=== PATIENT | female | born 1965 | race Caucasian/White ===

== ENCOUNTER 2017-11-03 10:40 | Emergency (ER) | payer OTHER ==
[2017-11-03] MEDS ORDERED: DEXTROSE 50%-WATER 50 ML SYRINGE IVP ONE (10:43)
[2017-11-03] MEDS ORDERED: MAGNESIUM SULFATE SYG 4.06 MEQ/ML SYRINGE ONE (10:43)
[2017-11-03] MEDS ORDERED: EPINEPHrine 10 ML SYRINGE (0.1 MG/ML) ONE (10:43)
[2017-11-03] MEDS ORDERED: SODIUM BICARB 8.4% 50 ML SYR (1 MEQ/ML) ONE (10:43)
[2017-11-03] MEDS ORDERED: SODIUM CHLORIDE 0.9% 1,000 ML IV STA (11:03)
[2017-11-03 11:04] LABS: Glucose,Whole Blood <20 mg/dL (75-99)
[2017-11-03 11:04] LABS: Glucose,Whole Blood <20 mg/dL (75-99)
--- NOTE | 2017-11-03 11:14 | ED ---
CPR HPI - General Stated Complaint: unresponsive Time Seen by Provider: 11/03/17 10:40 Source: EMS, RN notes reviewed Mode of arrival: EMS - History of Present Illness Initial Comments: This is a 51-year-old female laying history of alcoholism but unknown other history at this time. Apparently has not been drinking alcohol for about 5 days and started going through withdrawal symptoms. Apparently EMS was called twice is here yesterday but she refused transport. Today she was feeling bad and the family did bring into the hospital but she collapsed suddenly when the nurses here to the car. Fire rescue arrived at 9:42 AM and EMS read it 9:45 AM. ACLS protocol and evaluation was per formed. Patient had gone into what appear to be cardiac arrest and interosseous IV was started and the left lower extremity her glucose is 55 chest compressions were started epinephrine was given. Patient was intubated with a 7.0 ET tube. Patient did go through various rhythms including PEA upon arrival CPR was in progress patient did have episodes of PEA with long Pauses. After persistent CPR and ACLS protocol the patient did have spontaneous circulation is evident by peripheral pulses blood pressure and cardiac activity on a monitor. MD Complaint: collapsed during activity - Related Data Home Medications Medication Instructions Recorded Confirmed No Known Home Medications [No 11/03/17 11/03/17 Known Home Medications] Allergies Allergy/AdvReac Type Severity Reaction Status Date / Time No Known Allergies Allergy Verified 11/03/17 11:54 Review of Systems ROS Statement: Those systems with pertinent positive or pertinent negative responses have been documented in the HPI. ROS Other: All systems not noted in ROS Statement are negative. Limitations: ROS unobtainable due to patients medical condition General Exam - General Exam Comments Initial Comments: This is a well-developed asthenic appearing female who is unresponsive. Limitations: altered mental status, physical limitation General appearance: other (Unresponsive) Head exam: Present: atraumatic, normocephalic, normal inspection Eye exam: Present: other (Pupils fixed and midpoint) ENT exam: Present: other (Oral tracheal tube in place) Neck exam: Present: normal inspection Respiratory exam: Present: decreased breath sounds (Equal but diminished breath sounds bilaterally) Cardiovascular Exam: Present: other (Initially pulseless) GI/Abdominal exam: Present: distended, other (Evidence of hepatomegaly and distended abdominal veins) Rectal exam: Present: deferred External exam: Present: normal external exam Extremities exam: Present: other (Cool to touch with vasoconstriction). Absent : full ROM Back exam: Present: normal inspection Neurological exam: Present: other (Unresponsive) Psychiatric exam: Present: other (Unresponsive) Skin exam: Present: pallor, mottled Course Vital Signs 11/03/17 12:02 Pulse Rate 36 L Respiratory 20 Rate O2 Sat by Pulse 100 Oximetry - Reevaluation(s) Reevaluation #1: 11/03/17 14:04 Patient did require extensive CPR and did have return of spontaneous circulation but no evidence of neurological function pupils remained fixed and midpoint no response to stimulus. Reevaluation #2: 11/03/17 14:04 I did discuss the events with the patient's . He states she's not been feeling well for 6-7 days since she quit drinking alcohol he's been in bed the last 2 days he has been eating or drinking. He tried to bring her to the hospital today after she had refused last several days she last became unresponsive. He stated there is perhaps 5-6 minute leg time before the fire Department was able to respond to the house. He has stated that she previously is slid out of bed and about 4:30 this morning complaining of being cold. She has been naked where she normally was always cold wearing closed. When EMS responded and she was at neck and in apparent PEA arrest ACLS protocol was begun. Reevaluation #3: 11/03/17 14:08 I did review the lab work that was available this is all post resuscitation and the results to likely reflect this. Medical Decision Making - Medical Decision Making I did have an extensively long discussion with the patient's regarding the events. Patient has been showing runs of asystole. Becoming more frequent patient prognosis is very poor after discussion the patient was made a supportive care only. Unlikely chance of recovery due to the extensive down time and CPR time. Patient was placed on a T piece and shortly thereafter did 12:52 pm time of . I did also discuss case the medical certification specialist's office at 1300 p.m. patient will be placed in the morgue at this time - Lab Data Result diagrams: 11/03/17 11:15 11/03/17 11:15 Lab Results 11/03/17 11/03/17 11/03/17 Range/Units 10:55 11:02 11:15 WBC (3.8-10.6) k/uL RBC (3.80-5.40) m/uL Hgb (11.4-16.0) gm/dL Hct (34.0-46.0) % MCV (80.0-100.0) fL MCH (25.0-35.0) pg MCHC (31.0-37.0) g/dL RDW (11.5-15.5) % Plt Count (150-450) k/uL Neutrophils % (Manual) % Band Neutrophils % % Lymphocytes % (Manual) % Monocytes % (Manual) % Eosinophils % (Manual) % Metamyelocytes % % Myelocytes % % Promyelocytes % % Neutrophils # (Manual) (1.3-7.7) k/uL Lymphocytes # (Manual) (1.0-4.8) k/uL Monocytes # (Manual) (0-1.0) k/uL Eosinophils # (Manual) (0-0.7) k/uL Metamyelocytes # (Man) (0) k/uL Myelocytes # (Manual) (0) k/uL Promyelocytes # (Man) (0) k/uL Nucleated RBCs (0-0) /100 WBC Toxic Granulation Toxic Vacuolation Hypochromasia Poikilocytosis (manual Anisocytosis (manual) Macrocytosis Fragmented RBCs PT (9.0-12.0) sec INR (<1.2) APTT (22.0-30.0) sec D-Dimer (<0.60) mg/L FEU Sodium (137-145) mmol/L Potassium (3.5-5.1) mmol/L Chloride (98-107) mmol/L Carbon Dioxide (22-30) mmol/L Anion Gap mmol/L BUN (7-17) mg/dL Creatinine (0.52-1.04) mg/dL Est GFR (CKD-EPI)AfAm (>60 ml/min/1.73 sqM) Est GFR (CKD-EPI)NonAf (>60 ml/min/1.73 sqM) Glucose (74-99) mg/dL POC Glucose (mg/dL) <20 L <20 L (75-99) mg/dL POC Glu Assistant Banquet Manager ID Rona Patrick Brittnie Calcium (8.4-10.2) mg/dL Magnesium (1.6-2.3) mg/dL Total Bilirubin (0.2-1.3) mg/dL AST (14-36) U/L ALT (9-52) U/L Alkaline Phosphatase (38-126) U/L Ammonia 735 H (<30) umol/L Total Creatine Kinase (30-135) U/L CK-MB (CK-2) (0.0-2.4) ng/mL CK-MB (CK-2) Rel Index Troponin I (0.000-0.034) ng/mL NT-Pro-B Natriuret Pep pg/mL Total Protein (6.3-8.2) g/dL Albumin (3.5-5.0) g/dL Amylase (30-110) U/L Lipase (23-300) U/L Serum Alcohol mg/dL 11/03/17 11/03/17 11/03/17 Range/Units 11:15 11:15 11:15 WBC 18.3 H (3.8-10.6) k/uL RBC 1.80 L (3.80-5.40) m/uL Hgb 5.9 L* (11.4-16.0) gm/dL Hct 21.0 L (34.0-46.0) % MCV 116.9 H (80.0-100.0) fL MCH 32.6 (25.0-35.0) pg MCHC 27.9 L (31.0-37.0) g/dL RDW 13.2 (11.5-15.5) % Plt Count 53 L (150-450) k/uL Neutrophils % (Manual) 45 % Band Neutrophils % 26 % Lymphocytes % (Manual) 10 % Monocytes % (Manual) 6 % Eosinophils % (Manual) 1 % Metamyelocytes % 5 % Myelocytes % 9 % Promyelocytes % 1 % Neutrophils # (Manual) 12.90 H (1.3-7.7) k/uL Lymphocytes # (Manual) 1.83 (1.0-4.8) k/uL Monocytes # (Manual) 1.10 H (0-1.0) k/uL Eosinophils # (Manual) 0.18 (0-0.7) k/uL Metamyelocytes # (Man) 0.92 H (0) k/uL Myelocytes # (Manual) 1.65 H (0) k/uL Promyelocytes # (Man) 0.18 H (0) k/uL Nucleated RBCs 0 (0-0) /100 WBC Toxic Granulation Present Toxic Vacuolation Present Hypochromasia Marked Poikilocytosis (manual Present Anisocytosis (manual) Present Macrocytosis Marked Fragmented RBCs Present PT (9.0-12.0) sec INR (<1.2) APTT (22.0-30.0) sec D-Dimer (<0.60) mg/L FEU Sodium 122 L (137-145) mmol/L Potassium 8.7 H* (3.5-5.1) mmol/L Chloride 80 L* (98-107) mmol/L Carbon Dioxide 6 L* (22-30) mmol/L Anion Gap 36 mmol/L BUN 113 H* (7-17) mg/dL Creatinine 3.60 H (0.52-1.04) mg/dL Est GFR (CKD-EPI)AfAm 16 (>60 ml/min/1.73 sqM) Est GFR (CKD-EPI)NonAf 14 (>60 ml/min/1.73 sqM) Glucose 850 H* (74-99) mg/dL POC Glucose (mg/dL) (75-99) mg/dL POC Glu Assistant Banquet Manager ID Calcium 7.3 L (8.4-10.2) mg/dL Magnesium 4.9 H* (1.6-2.3) mg/dL Total Bilirubin 1.5 H (0.2-1.3) mg/dL AST 284 H (14-36) U/L ALT 81 H (9-52) U/L Alkaline Phosphatase 194 H (38-126) U/L Ammonia (<30) umol/L Total Creatine Kinase 217 H (30-135) U/L CK-MB (CK-2) 6.2 H* (0.0-2.4) ng/mL CK-MB (CK-2) Rel Index 2.9 Troponin I 0.027 (0.000-0.034) ng/mL NT-Pro-B Natriuret Pep pg/mL Total Protein 3.5 L (6.3-8.2) g/dL Albumin 1.3 L (3.5-5.0) g/dL Amylase 72 (30-110) U/L Lipase 187 (23-300) U/L Serum Alcohol <10 mg/dL 11/03/17 11/03/17 11/03/17 Range/Units 11:15 11:15 11:16 WBC (3.8-10.6) k/uL RBC (3.80-5.40) m/uL Hgb (11.4-16.0) gm/dL Hct (34.0-46.0) % MCV (80.0-100.0) fL MCH (25.0-35.0) pg MCHC (31.0-37.0) g/dL RDW (11.5-15.5) % Plt Count (150-450) k/uL Neutrophils % (Manual) % Band Neutrophils % % Lymphocytes % (Manual) % Monocytes % (Manual) % Eosinophils % (Manual) % Metamyelocytes % % Myelocytes % % Promyelocytes % % Neutrophils # (Manual) (1.3-7.7) k/uL Lymphocytes # (Manual) (1.0-4.8) k/uL Monocytes # (Manual) (0-1.0) k/uL Eosinophils # (Manual) (0-0.7) k/uL Metamyelocytes # (Man) (0) k/uL Myelocytes # (Manual) (0) k/uL Promyelocytes # (Man) (0) k/uL Nucleated RBCs (0-0) /100 WBC Toxic Granulation Toxic Vacuolation Hypochromasia Poikilocytosis (manual Anisocytosis (manual) Macrocytosis Fragmented RBCs PT 55.3 H (9.0-12.0) sec INR 6.1 H* (<1.2) APTT 78.7 H (22.0-30.0) sec D-Dimer >35.20 H (<0.60) mg/L FEU Sodium (137-145) mmol/L Potassium (3.5-5.1) mmol/L Chloride (98-107) mmol/L Carbon Dioxide (22-30) mmol/L Anion Gap mmol/L BUN (7-17) mg/dL Creatinine (0.52-1.04) mg/dL Est GFR (CKD-EPI)AfAm (>60 ml/min/1.73 sqM) Est GFR (CKD-EPI)NonAf (>60 ml/min/1.73 sqM) Glucose (74-99) mg/dL POC Glucose (mg/dL) >600 H (75-99) mg/dL POC Glu Assistant Banquet Manager ID Arline Guerrero Calcium (8.4-10.2) mg/dL Magnesium (1.6-2.3) mg/dL Total Bilirubin (0.2-1.3) mg/dL AST (14-36) U/L ALT (9-52) U/L Alkaline Phosphatase (38-126) U/L Ammonia (<30) umol/L Total Creatine Kinase (30-135) U/L CK-MB (CK-2) (0.0-2.4) ng/mL CK-MB (CK-2) Rel Index Troponin I (0.000-0.034) ng/mL NT-Pro-B Natriuret Pep 6740 pg/mL Total Protein (6.3-8.2) g/dL Albumin (3.5-5.0) g/dL Amylase (30-110) U/L Lipase (23-300) U/L Serum Alcohol mg/dL 11/03/17 Range/Units 11:47 WBC (3.8-10.6) k/uL RBC (3.80-5.40) m/uL Hgb (11.4-16.0) gm/dL Hct (34.0-46.0) % MCV (80.0-100.0) fL MCH (25.0-35.0) pg MCHC (31.0-37.0) g/dL RDW (11.5-15.5) % Plt Count (150-450) k/uL Neutrophils % (Manual) % Band Neutrophils % % Lymphocytes % (Manual) % Monocytes % (Manual) % Eosinophils % (Manual) % Metamyelocytes % % Myelocytes % % Promyelocytes % % Neutrophils # (Manual) (1.3-7.7) k/uL Lymphocytes # (Manual) (1.0-4.8) k/uL Monocytes # (Manual) (0-1.0) k/uL Eosinophils # (Manual) (0-0.7) k/uL Metamyelocytes # (Man) (0) k/uL Myelocytes # (Manual) (0) k/uL Promyelocytes # (Man) (0) k/uL Nucleated RBCs (0-0) /100 WBC Toxic Granulation Toxic Vacuolation Hypochromasia Poikilocytosis (manual Anisocytosis (manual) Macrocytosis Fragmented RBCs PT (9.0-12.0) sec INR (<1.2) APTT (22.0-30.0) sec D-Dimer (<0.60) mg/L FEU Sodium (137-145) mmol/L Potassium (3.5-5.1) mmol/L Chloride (98-107) mmol/L Carbon Dioxide (22-30) mmol/L Anion Gap mmol/L BUN (7-17) mg/dL Creatinine (0.52-1.04) mg/dL Est GFR (CKD-EPI)AfAm (>60 ml/min/1.73 sqM) Est GFR (CKD-EPI)NonAf (>60 ml/min/1.73 sqM) Glucose (74-99) mg/dL POC Glucose (mg/dL) 31 L (75-99) mg/dL POC Glu Assistant Banquet Manager ID McDaid, Debby Calcium (8.4-10.2) mg/dL Magnesium (1.6-2.3) mg/dL Total Bilirubin (0.2-1.3) mg/dL AST (14-36) U/L ALT (9-52) U/L Alkaline Phosphatase (38-126) U/L Ammonia (<30) umol/L Total Creatine Kinase (30-135) U/L CK-MB (CK-2) (0.0-2.4) ng/mL CK-MB (CK-2) Rel Index Troponin I (0.000-0.034) ng/mL NT-Pro-B Natriuret Pep pg/mL Total Protein (6.3-8.2) g/dL Albumin (3.5-5.0) g/dL Amylase (30-110) U/L Lipase (23-300) U/L Serum Alcohol mg/dL - EKG Data -: EKG Interpreted by [place] EKG shows normal: sinus rhythm (EKG after the resuscitation revealed evidence of atrial fibrillation premature ventricular or aberrant conduction complexes rate was 69 QRS 168 QT since QTC 470/503 nonspecific interventricular conduction block) - Radiology Data Radiology results: report reviewed (Imaging and report shows no definite acute changes the endotracheal tube was above the melanie in adequate position.), image reviewed Critical Care Time Critical Care Time: Yes Critical Care Time: 74 minutes of critical care time total which included monitoring the EMS and discussed with paramedics discussed with family and several occasions constant attendance of the patient documentation above discussion with the family with the medical certification specialist's office. Disposition Clinical Impression: Sudden cardiac , Alcoholism syndrome, PEA (Pulseless electrical activity) Disposition: Referrals: None,Stated [Primary Care Provider] - 1-2 days Preliminary Cause of : Sudden cardiac , alcoholism
[2017-11-03 11:25] LABS: Glucose,Whole Blood >600 mg/dL (75-99)
[2017-11-03] MEDS ORDERED: SODIUM CHLORIDE 0.9% 1,000 ML IV ONE (11:28)
[2017-11-03 11:44] LABS: Hypochromasia Marked; MCH 32.6 pg (25.0-35.0); MCHC 27.9 g/dL (31.0-37.0); MCV 116.9 fL (80.0-100.0); Macrocytosis Marked; Mean Platelet Volume 12.3; RDW 13.2 % (11.5-15.5); WBC 18.3 k/uL (3.8-10.6)
[2017-11-03 11:47] LABS: ALT 81 U/L (9-52); AST 284 U/L (14-36); Albumin 1.3 g/dL (3.5-5.0); Alcohol <10 mg/dL; Alkaline Phosphatase 194 U/L (38-126); Amylase 72 U/L (30-110); Calcium 7.3 mg/dL (8.4-10.2); Lipase 187 U/L (23-300); Sodium 122 mmol/L (137-145); Total Bilirubin 1.5 mg/dL (0.2-1.3); Total Protein 3.5 g/dL (6.3-8.2)
[2017-11-03 11:48] LABS: HGB 5.9 gm/dL (11.4-16.0)
[2017-11-03 11:49] LABS: Glucose,Whole Blood 31 mg/dL (75-99)
[2017-11-03 11:52] LABS: Anion Gap 36 mmol/L
--- NOTE | 2017-11-03 11:54 | XR ---
EXAMINATION TYPE: XR chest 1V portable DATE OF EXAM: 11/03/2017 Comparison: None Clinical History: 51-year-old female chest pain Findings: Heart normal size. Aorta within normal limits. External artifact projects over the right upper to mid lung. ET tube tip at the level of the medial clavicular heads. No consolidation. Trace blunting of th e left costophrenic angle. Impression: 1. ET tube tip at the level of the medial clavicular heads. 2. Trace blunting of the left costophrenic angle could represent some scarring or a trace effusion.
[2017-11-03 12:05] VITALS: PULSE 36; RESP 20
[2017-11-03 12:10] LABS: Troponin I 0.027 ng/mL (0.000-0.034)
[2017-11-03 12:23] LABS: Creatine Kinase MB 6.2 ng/mL (0.0-2.4)
[2017-11-03 12:24] LABS: Glucose 850 mg/dL (74-99); Potassium 8.7 mmol/L (3.5-5.1)
[2017-11-03 12:25] LABS: Band Neutrophils % 26 %; Blood Urea Nitrogen 113 mg/dL (7-17); Carbon Dioxide 6 mmol/L (22-30); Chloride 80 mmol/L (98-107); Eosinophils # (M) 0.18 k/uL (0-0.7); Lymphocytes # (M) 1.83 k/uL (1.0-4.8); Metamyelocytes # (M) 0.92 k/uL (0); Metamyelocytes % 5 %; Myelocytes # (M) 1.65 k/uL (0); Myelocytes % 9 %; Neutrophils % (M) 45 %; Nucleated Red Blood Cells 0 /100 WBC (0-0); Promyelocytes # (M) 0.18 k/uL (0); Promyelocytes % 1 %; Total Cells Counted 200; Toxic Granulation Present; Toxic Vacuolation Present
[2017-11-03 12:26] LABS: Magnesium 4.9 mg/dL (1.6-2.3)
[2017-11-03 12:27] LABS: Anisocytosis (M) Present; Platelet Count 53 k/uL (150-450); Poikilocytosis (M) Present; RBC Fragments Present
[2017-11-03 12:28] LABS: Prothrombin Time 55.3 sec (9.0-12.0)
[2017-11-03 12:30] LABS: D-Dimer >35.20 mg/L FEU (<0.60); INR 6.1 (<1.2); Partial Thromboplastin Time 78.7 sec (22.0-30.0)
== END 2017-11-03 14:05 | disposition expired ==
LOC: EC 10:40
DX: I46.9 Cardiac arrest, cause unspecified (principal); F10.20 Alcohol dependence, uncomplicated
CPT/HCPCS: 99291; 51702; 96360; 36415; 94002; 93005; 85379; 83880; 80053; 82140; 82150; 82550; 82553; 83690; 83735; 84484; 85025; 85610; 85730; 87040; 80320; 71045; J3475; J0171